=== PATIENT | female | born 2000 ===

== ENCOUNTER 2022-12-15 21:59 | Emergency (ER) | payer OTHER, SELFPAY ==
[2022-12-15 22:06] VITALS: BP 140/66; PULSE 84; RESP 16; TEMP 37.3; O2SAT 100; BMI 30.9
[2022-12-15] MEDS: predniSONE 20 MG TABLET 60 MG PO (22:16)
[2022-12-15] MEDS: diphenhydrAMINE 25 MG TABLET PO (22:16)
[2022-12-15] MEDS: FAMOTIDINE 20 MG TABLET PO (22:16)
[2022-12-15 22:54] VITALS: PULSE 81; RESP 16; O2SAT 99
[2022-12-15 23:58] VITALS: PULSE 79; RESP 16; O2SAT 100
--- NOTE | 2022-12-16 00:45 | ED.ALLEREA ---
HPI - Allergic Reaction General Chief complaint: Allergic Reaction Stated complaint: Rxn to medication Time Seen by Provider: 12/16/22 00:40 Source: patient Mode of arrival: Ambulatory History of Present Illness HPI narrative: Patient here for allergic reaction to ibuprofen. She states she is taken ibuprofen in the past but not this large quantity. She states her primary care provider prescribed her ibuprofen 800 mg 3 times a day this past week for a heel spur. Patient developed upper and lower symmetric lip swelling but no tongue swelling yesterday. No trouble breathing. Took Benadryl did not seem to help as much. Upper lip has resolved. She did take 1 dose of ibuprofen today. She was not sure if she was allergic to it. Otherwise denies any other new products in her life. Patient in no respiratory distress. Patient feeling much better after medications given at triage. Patient desires discharge home. Lip swelling on the lower lip has decreased/improved. Related Data Previous Rx's Medication Instructions Recorded diphenhydramine HCl 25 mg tablet 25 mg PO Q6H PRN allergic reaction 12/16/22 #20 tabs famotidine 20 mg tablet 20 mg PO BID #20 tabs 12/16/22 methylprednisolone 4 mg tablets in See Rx Instructions PO .COMPLEX 12/16/22 a dose pack (Medrol (Joesph)) #21 ea Allergies Allergy/AdvReac Type Severity Reaction Status Date / Time ibuprofen Allergy Verified 12/15/22 22:10 Latex, Natural Rubber Allergy Verified 12/15/22 22:10 Review of Systems Review of Systems Narrative: GENERAL: negative chills, fatigue, malaise, fever, sweats. HEENT: negative sinus pain, ear pain, sore throat, positive lip swelling RESPIRATORY: negative dyspnea, cough CARDIOVASCULAR: negative chest pain, palpitations GASTROINTESTINAL: negative nausea, vomiting, abdominal pain : negative dysuria, frequency, hematuria MUSCULOSKELETAL: negative muscle or bony pain SKIN: negative rash, skin lesions, NEUROLOGIC: negative weakness, numbness ROS Unobtainable: All systems reviewed & are unremarkable except as noted in HPI and below Patient History Social History Smoking Status: Never smoker Smoking Status: Never smoker Substance Use Type: does not use Exam Narrative Exam Narrative: GENERAL: in no distress, not toxic not dyspneic HEAD: Normocephalic. EYES: Pupils equal round ENT: Mucous membranes moist. There is symmetric lower lip edema. No tongue elevation no drooling no trismus no malocclusion. Patient protecting airway. NECK: Trachea midline. No stridor CARDIOVASCULAR: Regular rate and rhythm without murmurs RESPIRATORY: Clear to auscultation. Breath sounds equal bilaterally. No wheezes, rales, or rhonchi. Patient is speaking full sentences NEURO: AOx4. SKIN: Warm and dry PSYCH: Not anxious, is cooperative Initial Vital Signs Initial Vital Signs: Vital Signs Temperature 99.2 F 12/15/22 22:06 Pulse Rate 84 12/15/22 22:06 Respiratory Rate 16 12/15/22 22:06 Blood Pressure 140/66 12/15/22 22:06 Pulse Oximetry 100 12/15/22 22:06 Oxygen Delivery Method Room Air 12/15/22 22:06 Course Orders Ordered: Discontinued Medications Diphenhydramine HCl (Diphenhydramine 25 Mg Tablet) 25 mg PO NOW ONE Stop: 12/15/22 22:14 Last Admin: 12/15/22 22:16 Dose: 25 mg Documented By: Famotidine (Famotidine 20 Mg Tablet) 20 mg PO NOW ONE Stop: 12/15/22 22:14 Last Admin: 12/15/22 22:16 Dose: 20 mg Documented By: Prednisone (Prednisone 20 Mg Tablet) 60 mg PO NOW ONE Stop: 12/15/22 22:13 Last Admin: 12/15/22 22:16 Dose: 60 mg Documented By: Vital Signs Vital signs: Vital Signs - 8 hr 12/15/22 22:06 12/15/22 22:54 12/15/22 23:58 Temperature 99.2 F Pulse Rate 84 81 79 Respiratory Rate 16 16 16 Blood Pressure 140/66 Pulse Oximetry 100 99 100 Oxygen Delivery Method Room Air Room Air Room Air MDM - Allergic Reaction MDM Narrative Medical decision making narrative: Patient here for allergic reaction to ibuprofen. She states she is taken ibuprofen in the past but not this large quantity. She states her primary care provider prescribed her ibuprofen 800 mg 3 times a day this past week for a heel spur. Patient developed upper and lower symmetric lip swelling but no tongue swelling yesterday. No trouble breathing. Took Benadryl did not seem to help as much. Upper lip has resolved. She did take 1 dose of ibuprofen today. She was not sure if she was allergic to it. Otherwise denies any other new products in her life. Patient in no respiratory distress. Patient feeling much better after medications given at triage. Patient desires discharge home. Lip swelling on the lower lip has decreased/improved. After history and exam at triage patient given Pepcid as well as prednisone, no laboratory studies indicated MDM CC: Lower lip swelling Complicating co-morbidities: None Data collected from: Patient Medical records reviewed: No recent visits for this complaint here Differential considered: Includes but not limited to allergic drug reaction, urticaria, angioedema Exam documented above, pertinent findings include: Lower lip edema Treatments: Prednisone Pepcid Re-evaluations: 12:45 a.m.. Reviewed exam with patient. Agrees with treatment plan, she will stop taking ibuprofen, she states she will return back to her provider. She will continue steroid pack tomorrow. Return precautions reviewed with her. Not toxic at discharge. She desires discharge home. Discussion: Appropriate for discharge home. Exam is reassuring. Symptoms have improved since arrival after giving triage medications. Return precautions reviewed with her. She desires discharge home. No laboratory studies or imaging indicated. Airway protected. Not toxic or dyspneic at discharge Diagnosis: Allergic drug reaction Discharge Plan Departure Patient Disposition: Home Clinical Impression: Allergic reaction Instructions: DI for Adverse Drug Reaction -- Allergic Activity Restrictions/Additional Instructions: Please do not take ibuprofen/Motrin/Advil products in the future. We have listed this as an allergy. Please do continue steroid pack later today as well as Pepcid and Benadryl for swelling/allergic relief. Please see family doctor next week for re-evaluation. Return immediately if worse if any concerns or if any trouble breathing or swallowing. Please return the ibuprofen medication to your provider as yet plan. Prescriptions: New methylprednisolone [Medrol (Joesph)] 4 mg tablets,dose pack See Rx Instructions .ROUTE .COMPLEX Qty: 21 0RF Rx Instructions: orally per package directions diphenhydramine HCl 25 mg tablet 25 mg PO Q6H PRN (Reason: allergic reaction) Qty: 20 0RF famotidine 20 mg tablet 20 mg PO BID Qty: 20 0RF Referrals: ProviderUmer [Primary Care Provider] - Stand Alone Forms: Patient Portal/API
[2022-12-16 01:00] VITALS: BP 121/75; PULSE 79; RESP 16; O2SAT 99
== END 2022-12-16 01:02 | disposition home or self-care (01) ==
PROVIDERS: Emergency Provider Emergency Medicine
DX: R22.0 Localized swelling, mass and lump, head (principal); T39.315A Adverse effect of propionic acid derivatives, initial encounter
CPT/HCPCS: 99283; A9270